=== PATIENT | female | born 1945 | race Caucasian/White ===

== ENCOUNTER → 2018-01-29 | Outpatient (RCR) | payer MEDICARE, BC | LOC: PT 01-08 10:09 | PROVIDERS: ATTEND Specialist | DX: M47.816 Spondylosis without myelopathy or radiculopathy, lumbar region (principal); M54.5 Low back pain; M62.81 Muscle weakness (generalized) | CPT/HCPCS: 97110 ×8; 97162; G8981; G8982 ==

== ENCOUNTER → 2018-02-28 | Outpatient (RCR) | payer MEDICARE, BC | LOC: PT 01-31 09:59 | PROVIDERS: ATTEND Specialist | DX: M47.816 Spondylosis without myelopathy or radiculopathy, lumbar region (principal); M54.5 Low back pain; M62.81 Muscle weakness (generalized) | CPT/HCPCS: 97110 ×9; G8981; G8982 ×2; G8983 ==